=== PATIENT | female | born 1960 | race Caucasian/White ===

== ENCOUNTER 2023-05-03 17:54 | Inpatient (IN) | payer OTHER ==
[~2023-05-03] VITALS: Ht 154.9 cm; Wt 70.3 kg
[2023-05-03 18:35] LABS: BASOPHILS % 0.6 % (0.0-2.0); DIFFERENTIAL COMMENT 0; EOSINOPHILS % 0.7 % (0.0-5.0); HEMATOCRIT. 27.8 % (36.0-48.0); MEAN CORPUSCULAR HEMOGLOBIN 24.8 pg (28.0-32.0); MEAN CORPUSCULAR HGB CONC 32.4 g/dL (31.0-37.0); MEAN CORPUSCULAR VOLUME 76.5 fL (81.0-99.0); MEAN PLATELET VOLUME 6.8 fl (7.4-10.4); MONOCYTES % 8.3 % (2.0-8.0); NEUTROPHILS % 60.4 % (40.0-76.0); PLATELET 364 x1000/uL (130-400); RED BLOOD CELL COUNT 3.64 mill/uL (4.2-5.4); RED CELL DISTRIBUTION WIDTH 15.6 % (11.6-14.6); WHITE BLOOD COUNT 11.3 x1000/uL (4.5-11.0)
[2023-05-03 18:43] LABS: CHLORIDE 91 mEq/L (98-107); INDEX HEMOLYSI 1 (1-3); INDEX ICTERIC 1 (1-4); INDEX LIPEMIC 1 (1-3); POTASSIUM 2.9 mEq/L (3.5-5.1); SODIUM 126 mEq/L (136-145)
[2023-05-03 18:50] LABS: BILIRUBIN TOTAL 0.5 mg/dL (0.1-1.0); PROTEIN TOTAL 7.6 g/dL (6.0-8.3)
[2023-05-03 18:59] LABS: ALANINE AMINOTRANSFERASE 24 IU/L (13-61); ALBUMIN 3.8 g/dL (3.4-5.0); ASPARTATE AMINOTRANSFERASE 15 IU/L (15-37); CALCIUM 9.3 mg/dL (8.5-10.1); CARBON DIOXIDE 25 mEq/L (21-32); CREATININE 1.5 mg/dL (0.6-1.3); GLUCOSE 89 mg/dL (70-105); UREA NITROGEN BLOOD 17 mg/dL (7-21)
[2023-05-04 01:20] LABS: CLARITY URINE CLEAR (CLEAR); COLOR URINE YELLOW (YELLOW); GLUCOSE URINE NEGATIVE (NEGATIVE); KETONES URINE NEGATIVE (NEGATIVE); LEUKOCYTE ESTERASE URINE NEGATIVE (NEGATIVE); NITRITE URINE NEGATIVE (NEGATIVE); OCCULT BLOOD URINE NEGATIVE (NEGATIVE); PH URINE 5.5 (4.5-8.0); PROTEIN URINE NEGATIVE (NEGATIVE); SPECIFIC GRAVITY URINE 1.005 (1.005-1.030); UROBILINOGEN URINE 0.2 E.U./dL (0.2-1.0)
[2023-05-04] MEDS ORDERED: MORPHINE SULFATE 4 MG/ML CPJ (NOT FOR IM USE) IV ONE (02:30)
[2023-05-04] MEDS ORDERED: POTASSIUM CHLORIDE 20MEQ/PACKET PO ONE (02:30)
[2023-05-04] MEDS ORDERED: SODIUM CHLORIDE 0.9% 1,000 ML IV ONE (02:30)
[2023-05-04] MEDS ORDERED: ONDANSETRON 4MG ODT PO ONE (02:45)
[2023-05-04] MEDS ORDERED: ACETAMINOPHEN 325MG TABLET PO PRN (07:45)
[2023-05-04] MEDS ORDERED: CLONIDINE 0.1MG TABLET PO PRN (07:45)
[2023-05-04] MEDS ORDERED: IPRATROPIUM/ALBUTEROL 0.5-3(2.5)MG/3ML NEB HHN PRN (07:45)
[2023-05-04] MEDS ORDERED: MAGNESIUM/ALUMINUM HYDROXIDE/SIMETHICONE 30ML UDC PO PRN (07:45)
[2023-05-04] MEDS ORDERED: MORPHINE SULFATE 2 MG/ML CPJ (NOT FOR IM USE) IV PRN (07:45)
[2023-05-04] MEDS: PANTOPRAZOLE SODIUM 40 MG/VIAL IV SCH (08:01)
[2023-05-04] MEDS ORDERED: PIPERACILLIN/TAZ 3.375G PREMIX 50 ML IV SCH (08:04)
[2023-05-04] MEDS: SODIUM CHLORIDE 0.9% 1,000 ML IV SCH ×2 (08:06→20:24)
[2023-05-04] MEDS ORDERED: NALOXONE HCL 0.4MG/ML VIAL IV PRN (08:15)
[2023-05-04] MEDS: INSULIN LISPRO 100 UNITS/ML SUBCUT SCH ×3 (08:20→20:24)
[2023-05-04] MEDS ORDERED: POTASSIUM CHLORIDE INJ 40 MEQ in DEXT 5% WATER 250 ML IV NR (08:30)
[2023-05-04] MEDS ORDERED: METRONIDAZOLE 500 MG PREMIX 100 ML IV SCH (09:00)
[2023-05-04] MEDS: BLOOD SUGAR DIAGNOSTIC STRIP TEST SCH ×4 (09:33→20:24)
[2023-05-04 10:13] LABS: BASOPHILS % 0.9 % (0.0-2.0); DIFFERENTIAL COMMENT 0; EOSINOPHILS % 0.6 % (0.0-5.0); HEMATOCRIT. 25.6 % (36.0-48.0); HEMOGLOBIN. 8.4 g/dL (12.0-16.0); LYMPHOCYTES % 27.4 % (20.0-50.0); MEAN CORPUSCULAR HEMOGLOBIN 25.5 pg (28.0-32.0); MEAN CORPUSCULAR VOLUME 77.3 fL (81.0-99.0); MEAN PLATELET VOLUME 7.3 fl (7.4-10.4); MONOCYTES % 8.9 % (2.0-8.0); NEUTROPHILS % 62.2 % (40.0-76.0); PLATELET 288 x1000/uL (130-400); RED BLOOD CELL COUNT 3.31 mill/uL (4.2-5.4); RED CELL DISTRIBUTION WIDTH 15.7 % (11.6-14.6); WHITE BLOOD COUNT 5.5 x1000/uL (4.5-11.0)
[2023-05-04 10:34] LABS: PROTHROMBIN TIME 10.3 sec (9.6-11.0)
[2023-05-04 10:49] LABS: POTASSIUM 3.2 mEq/L (3.5-5.1)
[2023-05-04 11:05] LABS: CALCIUM 9.1 mg/dL (8.5-10.1); THYROID STIMULATING HORMONE 2.7 uIU/mL (0.36-3.74)
[2023-05-04] MEDS: HYDRALAZINE 20MG/ML VIAL IV SCH ×2 (12:00→17:52)
[2023-05-04] MEDS ORDERED: MAGNESIUM 1 G PREMIX 100 ML IV NR (13:00)
[2023-05-04 13:01] LABS: VITAMIN B12 SERUM 364 pg/mL (211-911)
[2023-05-04] MEDS: METRONIDAZOLE 500 MG PREMIX 100 ML IV SCH ×2 (15:18→22:44)
[2023-05-04 15:30] VITALS: BP 144/65; PULSE 62; RESP 20; TEMP 98.4
[2023-05-04] MEDS ORDERED: METF-416 PO (15:53)
[2023-05-04] MEDS ORDERED: ATOR40TA70 PO (15:53)
[2023-05-04] MEDS ORDERED: SULF1TAB48 PO (15:53)
[2023-05-04 15:59] VITALS: BP 144/65; PULSE 63; RESP 20; TEMP 98.4
[2023-05-04] MEDS ORDERED: PIPERACILLIN/TAZOBACTAM 3.375 G in DEXTROSE 5% WATER 50 ML IV SCH (16:30)
[2023-05-04 16:48] LABS: FERRITIN 23 ng/mL (10-291)
[2023-05-04] MEDS: IRON SUCROSE COMPLEX 100 MG/5 ML ML IV SCH (17:07)
[2023-05-04 17:52] VITALS: BP 131/66
[2023-05-04 20:18] VITALS: BP 130/63; PULSE 66; RESP 16; TEMP 97.1
[2023-05-04] MEDS: PIPERACILLIN/TAZOBACTAM 3.375 G in DEXTROSE 5% WATER 50 ML IV SCH (20:22)
[2023-05-04] MEDS: ATORVASTATIN CALCIUM 40MG TABLET PO SCH (21:00)
[2023-05-04 21:14] LABS: TROPONIN I HIGH SENSITIVITY 10 ng/L (<54)
[2023-05-05 00:18] VITALS: BP 151/58; PULSE 81; RESP 20; TEMP 97.3
[2023-05-05 04:00] VITALS: BP 141/64; PULSE 76; RESP 18; TEMP 97.5
[2023-05-05] MEDS: PIPERACILLIN/TAZOBACTAM 3.375 G in DEXTROSE 5% WATER 50 ML IV SCH ×2 (05:40→13:38)
[2023-05-05] MEDS: HYDRALAZINE 20MG/ML VIAL IV SCH ×4 (05:42→17:46)
[2023-05-05] MEDS: BLOOD SUGAR DIAGNOSTIC STRIP TEST SCH ×4 (05:55→21:43)
[2023-05-05 06:10] LABS: BASOPHILS % 0.8 % (0.0-2.0); DIFFERENTIAL COMMENT 0; HEMATOCRIT. 26.7 % (36.0-48.0); HEMOGLOBIN. 8.9 g/dL (12.0-16.0); LYMPHOCYTES % 25.4 % (20.0-50.0); MEAN CORPUSCULAR HEMOGLOBIN 25.8 pg (28.0-32.0); MEAN CORPUSCULAR HGB CONC 33.2 g/dL (31.0-37.0); MEAN CORPUSCULAR VOLUME 77.6 fL (81.0-99.0); MEAN PLATELET VOLUME 7.3 fl (7.4-10.4); NEUTROPHILS % 64.8 % (40.0-76.0); PLATELET 282 x1000/uL (130-400); RED BLOOD CELL COUNT 3.44 mill/uL (4.2-5.4); RED CELL DISTRIBUTION WIDTH 16.1 % (11.6-14.6); WHITE BLOOD COUNT 4.3 x1000/uL (4.5-11.0)
[2023-05-05] MEDS: INSULIN LISPRO 100 UNITS/ML SUBCUT SCH ×4 (07:13→21:00)
[2023-05-05 07:24] LABS: CHLORIDE 103 mEq/L (98-107); INDEX HEMOLYSI 1 (1-3); INDEX ICTERIC 1 (1-4); INDEX LIPEMIC 1 (1-3); POTASSIUM 3.1 mEq/L (3.5-5.1); SODIUM 136 mEq/L (136-145)
[2023-05-05 07:41] LABS: CALCIUM 8.8 mg/dL (8.5-10.1); CARBON DIOXIDE 26 mEq/L (21-32); CREATININE 0.7 mg/dL (0.6-1.3); GLUCOSE 83 mg/dL (70-105); T4 FREE 1.21 ng/dL (0.76-1.46); TROPONIN I HIGH SENSITIVITY 10 ng/L (<54); UREA NITROGEN BLOOD 6 mg/dL (7-21)
[2023-05-05 08:00] VITALS: BP 126/60; PULSE 80; RESP 20; TEMP 97.6
[2023-05-05] MEDS: ACETAMINOPHEN 325MG TABLET PO PRN ×2 (08:36→16:31)
[2023-05-05] MEDS: PANTOPRAZOLE SODIUM 40 MG/VIAL IV SCH (08:36)
[2023-05-05] MEDS: SODIUM CHLORIDE 0.9% 1,000 ML IV SCH (11:12)
[2023-05-05 12:00] VITALS: BP 111/64; PULSE 75; RESP 20; TEMP 96.9
[2023-05-05] MEDS ORDERED: POTASSIUM CHLORIDE 20MEQ/PACKET PO SCH (12:45)
[2023-05-05 14:42] LABS: *AMPHETAMINES SCREEN URINE NEGATIVE (NEGATIVE); *BARBITURATES SCREEN URINE NEGATIVE (NEGATIVE); *BENZODIAZEPINES SCREEN URINE NEGATIVE (NEGATIVE); *COCAINE SCREEN URINE NEGATIVE (NEGATIVE); CANNABINOID URINE SCREEN NEGATIVE (NEGATIVE); ECSTASY MDMA SCREEN URINE NEGATIVE (NEGATIVE); OPIATES URINE SCREEN NEGATIVE (NEGATIVE); PHENCYCLIDINE URINE SCREEN NEGATIVE (NEGATIVE)
[2023-05-05] MEDS: METRONIDAZOLE 500MG TABLET PO SCH ×2 (15:28→21:43)
[2023-05-05 16:00] VITALS: BP 139/63; PULSE 70; RESP 20; TEMP 97.9
[2023-05-05] MEDS: IRON SUCROSE COMPLEX 100 MG/5 ML ML IV SCH (16:29)
[2023-05-05] MEDS: LEVOFLOXACIN 500MG TABLET PO SCH (17:45)
[2023-05-05 20:00] VITALS: BP 135/64; PULSE 67; RESP 20; TEMP 97.3
[2023-05-05] MEDS: ATORVASTATIN CALCIUM 40MG TABLET PO SCH (21:43)
[2023-05-06] VITALS: BP 130/62; PULSE 72; RESP 20; TEMP 97.5
[2023-05-06] MEDS: HYDRALAZINE 20MG/ML VIAL IV SCH ×5 (01:49→23:19)
[2023-05-06] MEDS: SODIUM CHLORIDE 0.9% 1,000 ML IV SCH ×3 (01:50→23:28)
[2023-05-06 04:00] VITALS: BP 140/53; PULSE 74; RESP 20; TEMP 97.4
[2023-05-06] MEDS: METRONIDAZOLE 500MG TABLET PO SCH ×3 (06:21→21:36)
[2023-05-06 06:36] LABS: BASOPHILS % 1.2 % (0.0-2.0); DIFFERENTIAL COMMENT 0; EOSINOPHILS % 1.4 % (0.0-5.0); HEMATOCRIT. 26.1 % (36.0-48.0); HEMOGLOBIN. 8.6 g/dL (12.0-16.0); LYMPHOCYTES % 42.2 % (20.0-50.0); MEAN CORPUSCULAR HEMOGLOBIN 25.9 pg (28.0-32.0); MEAN CORPUSCULAR HGB CONC 32.9 g/dL (31.0-37.0); MEAN CORPUSCULAR VOLUME 78.5 fL (81.0-99.0); MEAN PLATELET VOLUME 7.2 fl (7.4-10.4); MONOCYTES % 12.7 % (2.0-8.0); NEUTROPHILS % 42.5 % (40.0-76.0); PLATELET 302 x1000/uL (130-400); RED BLOOD CELL COUNT 3.33 mill/uL (4.2-5.4); RED CELL DISTRIBUTION WIDTH 16.4 % (11.6-14.6); WHITE BLOOD COUNT 4.1 x1000/uL (4.5-11.0)
[2023-05-06 07:33] LABS: CHLORIDE 108 mEq/L (98-107); INDEX HEMOLYSI 1 (1-3); INDEX ICTERIC 1 (1-4); INDEX LIPEMIC 1 (1-3); POTASSIUM 3.7 mEq/L (3.5-5.1); SODIUM 139 mEq/L (136-145)
[2023-05-06 07:38] LABS: CALCIUM 9.8 mg/dL (8.5-10.1); CARBON DIOXIDE 27 mEq/L (21-32); CREATININE 0.7 mg/dL (0.6-1.3); GLUCOSE 96 mg/dL (70-105); PHOSPHORUS 2.7 mg/dL (2.5-4.9); UREA NITROGEN BLOOD 4 mg/dL (7-21)
[2023-05-06 08:00] VITALS: BP 115/42; PULSE 84; RESP 17; TEMP 97.1
[2023-05-06] MEDS: PANTOPRAZOLE SODIUM 40 MG/VIAL IV SCH (09:37)
[2023-05-06] MEDS: ACETAMINOPHEN 325MG TABLET PO PRN (09:37)
[2023-05-06] MEDS: LEVOFLOXACIN 500MG TABLET PO SCH (11:46)
[2023-05-06 12:00] VITALS: BP 128/60; PULSE 71; RESP 16; TEMP 97.3
[2023-05-06] MEDS: ONDANSETRON HCL 4MG/2ML INJ IV PRN ×2 (14:25→21:36)
[2023-05-06 16:00] VITALS: BP 117/54; PULSE 66; RESP 17; TEMP 97.1
[2023-05-06] MEDS: IRON SUCROSE COMPLEX 100 MG/5 ML ML IV SCH (16:14)
[2023-05-06 20:00] VITALS: BP 136/64; PULSE 87; RESP 20; TEMP 98.1
[2023-05-06] MEDS: ATORVASTATIN CALCIUM 40MG TABLET PO SCH (21:36)
[2023-05-07] VITALS: BP 140/60; PULSE 82; RESP 20; TEMP 97.6
[2023-05-07 04:00] VITALS: BP 123/54; PULSE 86; RESP 20; TEMP 97
[2023-05-07] MEDS: METRONIDAZOLE 500MG TABLET PO SCH ×2 (05:30→13:09)
[2023-05-07] MEDS: HYDRALAZINE 20MG/ML VIAL IV SCH ×2 (05:31→13:08)
[2023-05-07 06:44] LABS: BASOPHILS % 0.8 % (0.0-2.0); DIFFERENTIAL COMMENT 0; EOSINOPHILS % 0.6 % (0.0-5.0); HEMATOCRIT. 27.7 % (36.0-48.0); LYMPHOCYTES % 30.9 % (20.0-50.0); MEAN CORPUSCULAR HEMOGLOBIN 25.5 pg (28.0-32.0); MEAN CORPUSCULAR HGB CONC 32.5 g/dL (31.0-37.0); MEAN CORPUSCULAR VOLUME 78.7 fL (81.0-99.0); MEAN PLATELET VOLUME 7.1 fl (7.4-10.4); MONOCYTES % 10.7 % (2.0-8.0); PLATELET 356 x1000/uL (130-400); RED BLOOD CELL COUNT 3.52 mill/uL (4.2-5.4); RED CELL DISTRIBUTION WIDTH 16.7 % (11.6-14.6); WHITE BLOOD COUNT 6.6 x1000/uL (4.5-11.0)
[2023-05-07 08:00] VITALS: BP 114/48; PULSE 90; RESP 19; TEMP 97.3
[2023-05-07 08:29] LABS: CHLORIDE 106 mEq/L (98-107); INDEX HEMOLYSI 1 (1-3); INDEX ICTERIC 1 (1-4); INDEX LIPEMIC 1 (1-3); POTASSIUM 3.5 mEq/L (3.5-5.1); SODIUM 137 mEq/L (136-145)
[2023-05-07 08:37] LABS: CALCIUM 8.7 mg/dL (8.5-10.1); CARBON DIOXIDE 24 mEq/L (21-32); CREATININE 0.6 mg/dL (0.6-1.3); GLUCOSE 95 mg/dL (70-105); UREA NITROGEN BLOOD 3 mg/dL (7-21)
[2023-05-07] MEDS: PANTOPRAZOLE SODIUM 40 MG/VIAL IV SCH (09:58)
[2023-05-07] MEDS: LEVOFLOXACIN 500MG TABLET PO SCH (09:58)
[2023-05-07 12:00] VITALS: BP 115/60; PULSE 89; RESP 18; TEMP 97.5
[2023-05-07] MEDS ORDERED: METR-167 PO (12:44)
[2023-05-07] MEDS ORDERED: LEVO-65 PO (12:44)
[2023-05-07] MEDS: ACETAMINOPHEN 325MG TABLET PO PRN (13:09)
[2023-05-07 13:16] VITALS: BP 115/60; PULSE 89; TEMP 97.5; O2SAT 95
== END 2023-05-07 14:53 | disposition home or self-care (01) | DRG 872 ==
LOC: ER 17:54 → EDBEDREQSVC 05-04 03:00 → 5WST 05-04 03:00 → EDBEDREQ 05-04 03:00
PROVIDERS: ADMIT Internal Medicine; ATTEND Internal Medicine
DX: A41.9 Sepsis, unspecified organism (principal); K57.32 Diverticulitis of large intestine without perforation or abscess without bleeding; E87.1 Hypo-osmolality and hyponatremia; N17.9 Acute kidney failure, unspecified; N13.6 Pyonephrosis; D50.9 Iron deficiency anemia, unspecified; E83.42 Hypomagnesemia; E87.6 Hypokalemia; N18.9 Chronic kidney disease, unspecified; I12.9 Hypertensive chronic kidney disease with stage 1 through stage 4 chronic kidney disease, or unspecified chronic kidney disease; E78.00 Pure hypercholesterolemia, unspecified; E11.22 Type 2 diabetes mellitus with diabetic chronic kidney disease; K59.00 Constipation, unspecified; Z79.4 Long term (current) use of insulin; Z90.710 Acquired absence of both cervix and uterus; Z79.84 Long term (current) use of oral hypoglycemic drugs; Z79.899 Other long term (current) drug therapy; Z87.891 Personal history of nicotine dependence
CPT/HCPCS: 36415; 71045; 74176; 76705; 76770; 80048; 80053; 80061; 80305; 81003; 82270; 82607; 82728; 82746; 82962; 83036; 83540; 83550; 83735; 84100; 84145; 84439; 84443; 84484; 85025; 85044; 87015; 87045; 87427; 87449; 87493; 93005; 93970; 97161; 99285; C1893; C9113; J0360; J2270; J2405; J2543; J3475; J3480; J3490; J7030; J7060; Q0162